=== PATIENT | female | born 1980 | race Caucasian/White ===

== ENCOUNTER → 2025-03-18 | Outpatient (CLI) | payer BC, SELFPAY ==
[2025-03-18 16:49] LABS: Hematocrit 40.0 % (37-47); Hemoglobin 13.0 g/dL (12.0-15.0); Immature Granulocytes Count 0.030 X10^3/uL (0.0-0.0); Mean Corp Hgb Conc 32.5 g/dL (32-36); Mean Corpuscular Volume 90.7 fL (81-99); Mean Platelet Vol. 9.5 fl (6.2-12.0); NRBC Flagged by Analyzer 0 % (0-5); Platelet Count 479 K/mm3 (150-450); RBC Distribution Width CV 12.2 % (11.6-14.6); RBC Distribution Width SD 40.1 fl (35.1-43.9); Red Blood Count 4.41 M/mm3 (4.2-5.4); White Blood Count 6.3 K/mm3 (4.4-11.0)
[2025-03-18 17:26] LABS: Vitamin B12 372 pg/mL (180-914); Vitamin D,25 Hydroxy 30.4 ng/mL (30-100)
[2025-03-18 17:51] LABS: Iron 49 ug/dL (50-170)
[2025-03-18 17:55] LABS: AST(SGOT) 18 U/L (<=31); Alanine Aminotransfer ALT/SGPT 9 U/L (<=34); Albumin, Serum 4.6 g/dL (3.5-5.0); Alkaline Phosphatase 79 U/L (35-104); Anion Gap 13 (5-15); BUN 12 mg/dL (4-19); BUN/Creat Ratio 17.8 RATIO (10-20); Calcium,Total 10.0 mg/dL (7.6-11.0); Carbon Dioxide 22.9 mmol/L (21.0-32.0); Chloride 102 mmol/L (98-108); Globulin 3.3 g/dL (2.2-4.2); Glucose 102 mg/dL (70-99); Potassium 4.3 mmol/L (3.3-5.1)
[2025-03-20 06:08] LABS: HOMOCYSTEINE 6.9 umol/L (0.0-14.5)
== END | disposition home or self-care (01) ==
PROVIDERS: Referring Provider Nurse Practitioner Family; Visit Provider Nurse Practitioner Family
DX: G89.29 Other chronic pain (principal); R53.82 Chronic fatigue, unspecified; R53.1 Weakness; R59.0 Localized enlarged lymph nodes; M54.2 Cervicalgia; M62.838 Other muscle spasm; M25.50 Pain in unspecified joint; R51.9 Headache, unspecified; R42 Dizziness and giddiness; R07.9 Chest pain, unspecified; A69.20 Lyme disease, unspecified; N95.9 Unspecified menopausal and perimenopausal disorder
CPT/HCPCS: 80053; 82306; 82390; 82607; 82627; 83090; 83540; 83695; 84402; 84403; 85025; 86376; 86800; 82626